=== PATIENT | female | born 1930 | race Caucasian/White ===

== ENCOUNTER 2017-09-22 13:58 | Inpatient (IN) | payer MEDICARE, OTHER ==
[~2017-09-22] VITALS: Ht 170.2 cm; Wt 90.3 kg
[2017-09-22 14:46] LABS: BASOPHILS # (AUTO) 0.5 /CMM (0.0-0.2); BASOPHILS % (AUTO) 2.9 % (0.0-2.0); EOSINOPHILS % (AUTO) 0.1 % (0.0-6.0); HEMATOCRIT 39 % (33-45); HEMOGLOBIN 13.6 g/dL (11.5-14.8); LYMPHOCYTES # (AUTO) 0.3 /CMM (0.8-4.8); LYMPHOCYTES % (AUTO) 1.6 % (20.0-44.0); MEAN CORPUSCULAR HEMOGLOBIN 31 PG (26.0-33.0); MEAN CORPUSCULAR HGB CONC 35 g/dl (31.0-36.0); MEAN CORPUSCULAR VOLUME 90 fL (82-100); MONOCYTES # (AUTO) 0.3 /CMM (0.1-1.30); MONOCYTES % (AUTO) 1.7 % (2.0-12.0); NEUTROPHILS # (AUTO) 17.4 /CMM (1.8-8.9); NEUTROPHILS % (AUTO) 93.7 % (43.0-81.0); PLATELET COUNT (AUTO) 256 /CMM (150-450); RDW COEFFICIENT OF VARIATION 13.9 (11.5-15.0); RED BLOOD CELL COUNT(AUTO) 4.39 MIL/uL (4.0-5.2); WHITE BLOOD COUNT (AUTO) 18.5 K/uL (4.3-11.0)
[2017-09-22 15:01] LABS: INR 1.64 (0.87-1.13); PROTHROMBIN TIME 17.1 SECS (9.5-12.7)
[2017-09-22 15:08] LABS: TROPONIN I < 0.017 ng/mL (0.00-0.056)
[2017-09-22] MEDS ORDERED: IPRATROPIUM NEB FS 0.5 MG/2.5 ML AMPUL.NEB ONE (15:57)
[2017-09-22] MEDS ORDERED: ALBUTEROL FS 2.5 MG/3 ML VIAL.NEB ONE (15:57)
[2017-09-22] MEDS ORDERED: IPRATROPIUM NEB FS 0.5 MG/2.5 ML AMPUL.NEB NEB ONE (16:00)
[2017-09-22] MEDS ORDERED: LORAZEPAM INJ 2 MG/ML VIAL IV ONE (16:00)
[2017-09-22] MEDS ORDERED: methylPREDNISolone SOD SUCC 125 MG/2ML VIAL IV ONE (16:00)
[2017-09-22] MEDS ORDERED: ALBUTEROL FS 2.5 MG/3 ML VIAL.NEB NEB ONE (16:00)
[2017-09-22] MEDS ORDERED: DILTIAZEM HCL 50 MG IV IV ONE ×3 (16:00→17:30)
[2017-09-22 16:02] LABS: ALANINE AMINOTRANSFERASE 35 U/L (12-78); ALBUMIN 2.8 g/dL (3.4-5.0); ALKALINE PHOSPHATASE 48 U/L (46-116); ASPARTATE AMINOTRANSFERASE 22 U/L (15-37); BILIRUBIN,DIRECT 0.1 mg/dL (0.0-0.2); BILIRUBIN,TOTAL 0.7 mg/dL (0.2-1.0); CALCIUM, SERUM 9.9 mg/dL (8.5-10.1); CARBON DIOXIDE 26 mmol/L (21-32); CHLORIDE 97 mmol/L (98-107); CREATININE 1.1 mg/dL (0.6-1.3); GLUCOSE 132 mg/dL (74-106); POTASSIUM 4.4 mmol/L (3.5-5.1); SODIUM SERUM 135 mmol/L (136-145); TOTAL PROTEIN, SERUM 7.8 g/dL (6.4-8.2); UREA NITROGEN, BLOOD 17 mg/dL (7-18)
[2017-09-22] MEDS ORDERED: methylPREDNISolone SOD SUCC 125 MG/2ML VIAL ONE (16:02)
[2017-09-22] MEDS ORDERED: LORAZEPAM INJ 2 MG/ML VIAL ONE (16:03)
[2017-09-22] MEDS ORDERED: DILTIAZEM HCL 25 MG IV ONE (16:04)
[2017-09-22] MEDS ORDERED: WARFARIN SODIUM 5 MG TABLET PO SCH (17:00)
[2017-09-22] MEDS ORDERED: DONE10TA44 PO (17:40)
[2017-09-22] MEDS ORDERED: ALEN70TA45 PO (17:40)
[2017-09-22] MEDS ORDERED: ACET-2605 PO (17:40)
[2017-09-22] MEDS ORDERED: WARF5TAB6 PO (17:40)
[2017-09-22] MEDS ORDERED: AMLO2.5T PO (17:40)
[2017-09-22] MEDS ORDERED: FOLI1TAB16 PO (17:40)
[2017-09-22] MEDS ORDERED: METO100T14 PO (17:40)
[2017-09-22] MEDS ORDERED: TRIA1TAB96 PO (17:40)
[2017-09-22] MEDS ORDERED: MULT-213 PO (17:40)
[2017-09-22] MEDS ORDERED: CHOL200026 PO (17:40)
[2017-09-22] MEDS ORDERED: LOVA10TA PO (17:40)
[2017-09-22] MEDS ORDERED: ALBU8.5H8 INH (17:40)
[2017-09-22] MEDS ORDERED: OMEG100037 PO (17:40)
[2017-09-22] MEDS ORDERED: POTA10TA15 PO (17:40)
[2017-09-22] MEDS ORDERED: DIGOXIN INJ 0.5 MG/2 ML AMPUL IV ONE (18:00)
[2017-09-22] MEDS ORDERED: DIGOXIN INJ 0.5 MG/2 ML AMPUL ONE (18:03)
[2017-09-22 19:15] LABS: ABG BASE EXCESS 2.4 mmol/L; ABG OXYGEN SATURATION 94.4 % (92.0-98.5); ABG PCO2 54.7 mmHg (35.0-45.0); ABG PH 7.345 (7.350-7.450); AaDO2 83.2 mmHg; MetHb 0.3 % (0.0-1.5); O2Hb 93.2 % (94.0-97.0); SITE, ABG Right Radial; VENT MODE, BG nasal cannula
[2017-09-22] MEDS ORDERED: Z GUARD REMEDY 2 OZ OINT TP PRN (19:30)
[2017-09-22] MEDS ORDERED: ZOLPIDEM TARTRATE 5 MG TABLET PO PRN (19:30)
[2017-09-22] MEDS ORDERED: HYDROCODONE/APAP 5/325MG 1 EACH TABLET PO PRN (19:30)
[2017-09-22] MEDS ORDERED: MAG HYDROX/AL HYDROX/SIMETH 30 ML UDC PO PRN (19:30)
[2017-09-22] MEDS ORDERED: ONDANSETRON HCL/PF 4 MG/2 ML VIAL IVP PRN (19:30)
[2017-09-22] MEDS ORDERED: MAGNESIUM HYDROXIDE 30 ML UDC PO PRN (19:30)
[2017-09-22] MEDS ORDERED: ACETAMINOPHEN 325 MG TABLET PO PRN (19:30)
[2017-09-22] MEDS ORDERED: Medication Not On Formulary EA (Omega-3/Dha/Epa/Fish Oil (Fish Oil 1,000 mg Softgel) 1,0 PO SCH (19:30)
[2017-09-22] MEDS: FUROSEMIDE 40 MG/4 ML VIAL IV SCH (21:26)
[2017-09-22] MEDS: methylPREDNISolone SOD SUCC 40 MG/ML VIAL IV SCH (21:26)
[2017-09-22] MEDS: METOPROLOL TARTRATE 50 MG TABLET PO SCH (21:36)
[2017-09-23] MEDS ORDERED: VANCOMYCIN HCL 125 MG/2.5 ML ORAL.SUSP ONE (01:33)
[2017-09-23] MEDS: VANCOMYCIN HCL 125 MG/2.5 ML ORAL.SUSP PO SCH ×5 (01:36→23:58)
[2017-09-23 07:17] LABS: ALANINE AMINOTRANSFERASE 31 U/L (12-78); ALBUMIN 2.6 g/dL (3.4-5.0); ALKALINE PHOSPHATASE 49 U/L (46-116); ASPARTATE AMINOTRANSFERASE 19 U/L (15-37); BILIRUBIN,TOTAL 0.4 mg/dL (0.2-1.0); CALCIUM, SERUM 9.7 mg/dL (8.5-10.1); CARBON DIOXIDE 32 mmol/L (21-32); CHLORIDE 97 mmol/L (98-107); CREATININE 1.3 mg/dL (0.6-1.3); GLUCOSE 167 mg/dL (74-106); MAGNESIUM 1.8 mg/dL (1.8-2.4); PHOSPHORUS 4.2 mg/dL (2.5-4.9); POTASSIUM 4.1 mmol/L (3.5-5.1); SODIUM SERUM 135 mmol/L (136-145); TOTAL PROTEIN, SERUM 7.7 g/dL (6.4-8.2); UREA NITROGEN, BLOOD 25 mg/dL (7-18)
[2017-09-23 07:25] LABS: BASOPHILS % (AUTO) 0.1 % (0.0-2.0); EOSINOPHILS % (AUTO) 0.1 % (0.0-6.0); HEMATOCRIT 40 % (33-45); HEMOGLOBIN 13.4 g/dL (11.5-14.8); LYMPHOCYTES # (AUTO) 0.4 /CMM (0.8-4.8); LYMPHOCYTES % (AUTO) 2.7 % (20.0-44.0); MEAN CORPUSCULAR HEMOGLOBIN 30 PG (26.0-33.0); MEAN CORPUSCULAR HGB CONC 33 g/dl (31.0-36.0); MEAN CORPUSCULAR VOLUME 90 fL (82-100); MONOCYTES # (AUTO) 0.1 /CMM (0.1-1.30); NEUTROPHILS # (AUTO) 13.8 /CMM (1.8-8.9); NEUTROPHILS % (AUTO) 96.1 % (43.0-81.0); PLATELET COUNT (AUTO) 293 /CMM (150-450); RED BLOOD CELL COUNT(AUTO) 4.43 MIL/uL (4.0-5.2); WHITE BLOOD COUNT (AUTO) 14.3 K/uL (4.3-11.0)
[2017-09-23 07:27] LABS: CHOLESTEROL 157 mg/dL (<200); HDL CHOLESTEROL 70 mg/dL (40-60); LDL 75 mg/dL (0-99); THYROID STIMULATING HORMONE 0.983 uIU/mL (0.358-3.74); TRIGLYCERIDES 40 mg/dL (30-150)
[2017-09-23 08:00] VITALS: BP 106/62
[2017-09-23] MEDS: ALBUTEROL FS 2.5 MG/0.5 ML VIAL.NEB NEB SCH ×3 (08:26→23:58)
[2017-09-23] MEDS: ATORVASTATIN 10 MG TABLET PO SCH (08:48)
[2017-09-23] MEDS: methylPREDNISolone SOD SUCC 40 MG/ML VIAL IV SCH ×3 (08:48→17:14)
[2017-09-23] MEDS: CHOLECALCIFEROL 1,000 UNIT TABLET (VIT D3) PO SCH (08:48)
[2017-09-23] MEDS: FUROSEMIDE 40 MG/4 ML VIAL IV SCH ×2 (08:48→17:14)
[2017-09-23] MEDS: DONEPEZIL 5 MG TABLET PO SCH (08:49)
[2017-09-23] MEDS: FOLIC ACID 1 MG TABLET PO SCH (08:49)
[2017-09-23] MEDS: MULTIVIT, IRON, MIN NO. 8, FA 1 TAB PO SCH (08:49)
[2017-09-23] MEDS: POTASSIUM CHLORIDE 10 MEQ TABLET.SA PO SCH (08:49)
[2017-09-23] MEDS: AMLODIPINE BESYLATE 2.5 MG TABLET PO SCH (08:50)
[2017-09-23] MEDS: METOPROLOL TARTRATE 50 MG TABLET PO SCH ×2 (08:50→21:42)
[2017-09-23] MEDS: TRIAMTERENE/HYDROCHLOROTHIAZID (37.5/25MG) 1 UDCAP PO SCH (08:51)
[2017-09-23 09:53] LABS: ABG BASE EXCESS 6.3 mmol/L; ABG OXYGEN SATURATION 93.9 % (92.0-98.5); ABG PCO2 48.2 mmHg (35.0-45.0); ABG PH 7.435 (7.350-7.450); ABG PO2 72.6 mmHg (75.0-100.0); AaDO2 70.2 mmHg; COHb 0.3 % (0.5-1.5); MetHb 0.4 % (0.0-1.5); O2Hb 93.2 % (94.0-97.0); SITE, ABG Right Femoral
[2017-09-23 12:00] VITALS: BP 113/66
[2017-09-23 16:00] VITALS: BP 110/57
[2017-09-23 20:00] VITALS: BP 116/58
[2017-09-24] MEDS: VANCOMYCIN HCL 125 MG/2.5 ML ORAL.SUSP PO SCH ×4 (06:09→23:35)
[2017-09-24] MEDS: ALBUTEROL FS 2.5 MG/0.5 ML VIAL.NEB NEB SCH ×3 (07:19→23:54)
[2017-09-24] MEDS: AMLODIPINE BESYLATE 2.5 MG TABLET PO SCH (09:00)
[2017-09-24] MEDS: METOPROLOL TARTRATE 50 MG TABLET PO SCH ×2 (09:00→21:14)
[2017-09-24] MEDS: ATORVASTATIN 10 MG TABLET PO SCH (09:00)
[2017-09-24] MEDS: TRIAMTERENE/HYDROCHLOROTHIAZID (37.5/25MG) 1 UDCAP PO SCH (09:00)
[2017-09-24] MEDS: DONEPEZIL 5 MG TABLET PO SCH (09:00)
[2017-09-24] MEDS: FUROSEMIDE 40 MG/4 ML VIAL IV SCH ×2 (10:47→17:21)
[2017-09-24] MEDS: methylPREDNISolone SOD SUCC 40 MG/ML VIAL IV SCH ×3 (10:47→17:21)
[2017-09-24] MEDS: MULTIVIT, IRON, MIN NO. 8, FA 1 TAB PO SCH (12:55)
[2017-09-24] MEDS: FOLIC ACID 1 MG TABLET PO SCH (12:55)
[2017-09-24] MEDS: POTASSIUM CHLORIDE 10 MEQ TABLET.SA PO SCH (12:55)
[2017-09-24] MEDS: CHOLECALCIFEROL 1,000 UNIT TABLET (VIT D3) PO SCH (12:55)
[2017-09-24] MEDS ORDERED: WARFARIN SODIUM 5 MG TABLET PO SCH (17:00)
[2017-09-24 20:00] VITALS: BP 121/63
[2017-09-25 04:00] VITALS: BP 112/64
[2017-09-25] MEDS: VANCOMYCIN HCL 125 MG/2.5 ML ORAL.SUSP PO SCH ×2 (05:27→12:22)
[2017-09-25] MEDS: ALBUTEROL FS 2.5 MG/0.5 ML VIAL.NEB NEB SCH ×2 (08:36→15:43)
[2017-09-25] MEDS: POTASSIUM CHLORIDE 10 MEQ TABLET.SA PO SCH (08:56)
[2017-09-25] MEDS: FOLIC ACID 1 MG TABLET PO SCH (08:56)
[2017-09-25] MEDS: AMLODIPINE BESYLATE 2.5 MG TABLET PO SCH (08:56)
[2017-09-25] MEDS: methylPREDNISolone SOD SUCC 40 MG/ML VIAL IV SCH ×2 (08:56→12:22)
[2017-09-25] MEDS: ATORVASTATIN 10 MG TABLET PO SCH (08:56)
[2017-09-25] MEDS: DONEPEZIL 5 MG TABLET PO SCH (08:57)
[2017-09-25] MEDS: FUROSEMIDE 40 MG/4 ML VIAL IV SCH (08:57)
[2017-09-25] MEDS: MULTIVIT, IRON, MIN NO. 8, FA 1 TAB PO SCH (08:57)
[2017-09-25] MEDS: TRIAMTERENE/HYDROCHLOROTHIAZID (37.5/25MG) 1 UDCAP PO SCH (08:57)
[2017-09-25 08:58] VITALS: BP 129/66
[2017-09-25] MEDS: METOPROLOL TARTRATE 50 MG TABLET PO SCH (08:58)
[2017-09-25] MEDS: CHOLECALCIFEROL 1,000 UNIT TABLET (VIT D3) PO SCH (08:58)
[2017-09-26] MEDS ORDERED: ALENDRONATE 70 MG TABLET PO SCH (07:30)
== END 2017-09-25 17:04 | DRG 291 ==
LOC: ER 14:00 → TRANSITION 18:03 → TELE-TD 20:07 → MEDSG1 09-23 15:58
PROVIDERS: ADMIT Internal Medicine; ATTEND Internal Medicine
DX: I11.0 Hypertensive heart disease with heart failure (principal); J96.01 Acute respiratory failure with hypoxia; J44.1 Chronic obstructive pulmonary disease with (acute) exacerbation; I50.33 Acute on chronic diastolic (congestive) heart failure; I48.91 Unspecified atrial fibrillation; I25.10 Atherosclerotic heart disease of native coronary artery without angina pectoris; F03.90 Unspecified dementia, unspecified severity, without behavioral disturbance, psychotic disturbance, mood disturbance, and anxiety; Z79.899 Other long term (current) drug therapy; E78.5 Hyperlipidemia, unspecified; Z79.01 Long term (current) use of anticoagulants; Z88.1 Allergy status to other antibiotic agents; Z88.0 Allergy status to penicillin; Z86.19 Personal history of other infectious and parasitic diseases
CPT/HCPCS: 36415; 36600; 71045; 80048-TC; 80053-TC; 80061-TC; 80076-TC; 82803-TC; 83605-TC; 83735-TC; 83880; 84100-TC; 84443-TC; 84484-TC; 85025-TC; 85730-TC; 87040-TC; 87081-TC; 93307-TC; A4606; J1160; J1940; J2060; J2405; J2920; J2930; J3490; Z7610

== ENCOUNTER 2017-09-28 11:55 | Outpatient (CLI) | payer MEDICARE ==
[~2017-09-28 11:55] MED LIST: ACET-2605 PO; ALBU8.5H8 INH; ALEN70TA45 PO; AMLO2.5T PO; CHOL200026 PO; DONE10TA44 PO; FOLI1TAB16 PO; LOVA10TA PO; METO100T14 PO; MULT-213 PO; OMEG100037 PO; POTA10TA15 PO; TRIA1TAB96 PO; WARF5TAB6 PO
[2017-09-28 12:14] VITALS: BP 119/68
== END 2017-09-28 23:59 | disposition home or self-care (01) ==
LOC: MSC 11:55
PROVIDERS: ATTEND Internal Medicine
DX: J44.9 Chronic obstructive pulmonary disease, unspecified (principal); J96.11 Chronic respiratory failure with hypoxia; I48.91 Unspecified atrial fibrillation; I11.0 Hypertensive heart disease with heart failure; I50.9 Heart failure, unspecified; I25.10 Atherosclerotic heart disease of native coronary artery without angina pectoris; E78.5 Hyperlipidemia, unspecified; F03.90 Unspecified dementia, unspecified severity, without behavioral disturbance, psychotic disturbance, mood disturbance, and anxiety; F41.9 Anxiety disorder, unspecified